=== PATIENT | female | born 1960 | race Caucasian/White ===

== ENCOUNTER 2021-01-01 10:30 | Emergency (ER) | payer MEDICAID, OTHER ==
[~2021-01-01] VITALS: Ht 149.9 cm; Wt 50.6 kg
--- NOTE | 2021-01-01 10:55 | NUR ---
PT BIB EMS FOR SOB, CHILLS, AND DIARRHEA. PT ALSO COMPLAINING OF LOWER BACK FROM FALL LAST NIGHT. PT STATES HER DR CALLED AN AMBULANCE FOR HER DUE TO THE BACK PAIN AND HER HIGH BLOOD SUGARS THAT CAME BACK IN HER LABS. PT STATING SHE ALSO HAS HAD RECENT TROOUBLE URINATING AND IT KAUR WHEN SHE PEES.
[2021-01-01] MEDS ORDERED: SODIUM CHLORIDE FLUSH 10ML SYR IVF ONE (11:00)
[2021-01-01] MEDS ORDERED: PLEASE ENTER ALLERGIES MC SCH (11:00)
[2021-01-01] MEDS ORDERED: SODIUM CHLORIDE 0.9% 1,000ML IVBOLUS ONE (11:00)
[2021-01-01 11:11] LABS: PH, VENOUS 7.489 pH (7.320-7.420)
[2021-01-01 11:15] LABS: BASOPHILS % (AUTO) 1 % (0-1); EOSINOPHILS % (AUTO) 0 % (1-7); LYMPHOCYTES % (AUTO) 21 % (22-44); MD NO; MEAN CORPUSCULAR HEMOGLOBIN 31.7 pg (27.0-34.8); MEAN CORPUSCULAR HGB CONC 35.5 g/dL (32.4-35.8); MEAN PLATELET VOLUME 7.1 fL (7.4-10.4); MONOCYTES % (AUTO) 9 % (2-9); NEUTROPHILS % (AUTO) 69 % (42-75); PLATELET COUNT 233 x10^3/uL (130-400); RED BLOOD COUNT 4.83 x10^6/uL (3.82-5.3); RED CELL DISTRIBUTION WIDTH 12.8 % (9.6-15.2)
[2021-01-01 11:24] LABS: ALANINE AMINOTRANSFERASE 14 U/L (12-78); ALBUMIN 3.7 g/dL (3.4-5.0); ANION GAP 7 mmol/L (5-15); CALCIUM 9.1 mg/dL (8.5-10.1); CHLORIDE 99 mmol/L (98-107)
[2021-01-01 11:26] LABS: ALKALINE PHOSPHATASE 109 U/L (45-117); BILIRUBIN,TOTAL 0.7 mg/dL (0.2-1.0); TOTAL PROTEIN 8.4 g/dL (6.4-8.2)
[2021-01-01] MEDS: SODIUM CHLORIDE 0.9% 1,000 ML IV ONE ×2 (11:27→13:19)
[2021-01-01 11:50] LABS: MICROSCOPIC INDICATED
[2021-01-01 12:00] LABS: ACETONE, SERUM Negative (Negative)
[2021-01-01] MEDS ORDERED: CEFTRIAXONE 1,000 MG in DEXTROSE 5% 50 ML IVPB ONE (12:30)
[2021-01-01] MEDS ORDERED: INSULIN REGULAR 100 UNITS/ML, 3ML VIAL SQ-INSULIN ONE (12:30)
[2021-01-01] MEDS ORDERED: INSULIN SINGLE DOSE, ER ONE (12:58)
--- NOTE | 2021-01-01 13:23 | NUR ---
PT MEDICATED PER ORDERS. WANTS TO GO HOME.
[2021-01-01 14:06] VITALS: BP 148/64
--- NOTE | 2021-01-01 14:13 | NUR ---
D/C INSTRUCTIONS, MEDS & F/U APPT RV'WD WITH PT, SHE VERBALIZES UNDERSTANDING. RX GIVEN X1. AMBULATED OUT OF ED WITHOUT DIFFICULTY. CAB VOUCHER PROVIDED.
== END 2021-01-01 14:12 | disposition home or self-care (01) ==
LOC: ED 13:55
DX: E10.65 Type 1 diabetes mellitus with hyperglycemia (principal); N30.00 Acute cystitis without hematuria; J44.9 Chronic obstructive pulmonary disease, unspecified; I25.2 Old myocardial infarction; Z87.891 Personal history of nicotine dependence; Z21 Asymptomatic human immunodeficiency virus [HIV] infection status
CPT/HCPCS: 36415; 71045; 80053; 81001; 82010; 82803; 82962; 83605; 85025; 87040; 87077; 87086; 87186; 93005; 96361; 96365; 99285; J0696; J7030; J1815